=== PATIENT | male | born 1990 | race Caucasian/White ===

== ENCOUNTER 2018-08-01 18:32 | Emergency (ER) | payer MEDICAID ==
[~2018-08-01] VITALS: Ht 188 cm; Wt 79.4 kg
--- NOTE | 2018-08-01 19:10 | NUR ---
ED Nurse Note:pt. came with abscess on both thighs
--- NOTE | 2018-08-01 19:13 | Emergency Room Report ---
History of Present Illness General Chief Complaint: Skin Rash/Abscess Source: Patient Present Illness HPI 27-year-old male presents to the emergency department complaining of 10 out of 10 severity pain, tenderness, swelling, erythema and warmth to the bilateral thighs secondary to spider bite x3 to 4 days. Patient reports that he was seen at [facility] and has been taking Keflex and Bactrim for the past 2 days however his symptoms have been progressing. Patient reports fevers and chills he states he is up-to-date with his vaccinations he denies taking blood thinning medications he denies necrosis of the skin. Patient denies paresthesias. Patient denies that these wounds are secondary to drug use. Pain is exacerbated upon palpation and attempts to walk. Patient states that he is to the point where he cannot walk because it so painful. Denies history of immune compromise. No aggravating or relieving factors at this time. Allergies: Coded Allergies: No Known Allergies (Unverified , 08/01/18) Patient History Past Medical History: see triage record Past Surgical History: none Pertinent Family History: none Immunizations: UTD Reviewed Nursing Documentation: PMH: Agreed; PSxH: Agreed Nursing Documentation-PMH Past Medical History: No Stated History Review of Systems All Other Systems: negative except mentioned in HPI Physical Exam Vital Signs Date Time Temp Pulse Resp B/P (MAP) Pulse Ox O2 Delivery O2 Flow Rate FiO2 08/01/18 18:34 98.2 118 18 146/79 (101) 96 Room Air Sp02 EP Interpretation: reviewed, normal General Appearance: no apparent distress, alert, GCS 15, non-toxic Head: normocephalic, atraumatic Eyes: bilateral eye normal inspection, bilateral eye PERRL ENT: hearing grossly normal, normal voice Neck: full range of motion Respiratory: lungs clear, normal breath sounds, speaking full sentences Cardiovascular #1: regular rate, rhythm, normal capillary refill Gastrointestinal: non tender Musculoskeletal: back normal, gait/station normal - compensatory, normal range of motion, tender - TTP to bilateral anterior thighs Neurologic: alert, oriented x3, responsive, motor strength/tone normal, sensory intact, speech normal, grossly normal Psychiatric: judgement/insight normal Skin: no rash, warm/dry, well hydrated, other - bilateral anterior thigh abscess and cellulitis:Area of erythema is approximately 6.5-7 inches in diameter. there is induration, warmth, and moderate tenderness. No obvious skin necrosis. Medical Decision Making PA Attestation Dr. Crockett is my supervising Physician whom patient management has been discussed with. Diagnostic Impression: Primary Impression: Abscess of left thigh Additional Impressions: Abscess of right thigh Cellulitis of left thigh Cellulitis of right thigh ER Course 27-year-old male presents to the emergency department complaining of 10 out of 10 severity pain, tenderness, swelling, erythema and warmth to the bilateral thighs secondary to spider bite x3 to 4 days. Patient reports that he was seen at [facility] and has been taking Keflex and Bactrim for the past 2 days however his symptoms have been progressing. Patient reports fevers and chills he states he is up-to-date with his vaccinations he denies taking blood thinning medications he denies necrosis of the skin. Patient denies paresthesias. Patient denies that these wounds are secondary to drug use. Pain is exacerbated upon palpation and attempts to walk. Patient states that he is to the point where he cannot walk because it so painful. Denies history of immune compromise. No aggravating or relieving factors at this time. Ddx considered but are not limited to cellulitis, abscess, cystic acne, necrotizing fasciitis, insect bite. Vital signs: Pt. is tachycardic otherwise are WNL, pt. is afebrile H&PE are most consistent with bilateral anterior thigh abscess and cellulitis failing oral abx treatment. area of erythema is approximately 6.5-7 inches in diameter. there is induration, warmth, and moderate tenderness. No obvious skin necrosis. highly suspicious for IM drug use, pt. possibly having w/d symptoms as well... current afebrile yet visible diaphoresis and anxiousness. ORDERS: -CBC: WBC's 12.8 -CMP: WNL -Lactic Acid: WNL -UA : WNL *please note CT scanner is non-functional at this time* ED INTERVENTIONS: -IV Vancomycin 1.5g - 1 liter NS Surgical Consult: Dr. Rodriguez - recommends admission for surgical drainage and IV abx. DISPOSITION: at this time pt. will be admitted to [facility] Dr. Montiel for Bilateral Thigh Abscess and Cellulitis. Dr. Montiel agreed to admit the pt. and to continue pt. care management. Labs Test 08/01/18 19:30 6/10/19 19:57 White Blood Count 12.8 K/UL (4.8-10.8) Red Blood Count 5.60 M/UL (4.70-6.10) Hemoglobin 16.6 G/DL (14.2-18.0) Hematocrit 48.6 % (42.0-52.0) Mean Corpuscular Volume 87 FL (80-99) Mean Corpuscular Hemoglobin 29.6 PG (27.0-31.0) Mean Corpuscular Hemoglobin Concent 34.1 G/DL (32.0-36.0) Red Cell Distribution Width 12.1 % (11.6-14.8) Platelet Count 236 K/UL (150-450) Mean Platelet Volume 8.4 FL (6.5-10.1) Neutrophils (%) (Auto) 68.3 % (45.0-75.0) Lymphocytes (%) (Auto) 19.1 % (20.0-45.0) Monocytes (%) (Auto) 10.6 % (1.0-10.0) Eosinophils (%) (Auto) 0.8 % (0.0-3.0) Basophils (%) (Auto) 1.1 % (0.0-2.0) Sodium Level 134 MMOL/L (136-145) Potassium Level 4.3 MMOL/L (3.5-5.1) Chloride Level 99 MMOL/L (98-107) Carbon Dioxide Level 28 MMOL/L (21-32) Anion Gap 7 mmol/L (5-15) Blood Urea Nitrogen 16 mg/dL (7-18) Creatinine 1.1 MG/DL (0.55-1.30) Estimat Glomerular Filtration Rate > 60 mL/min (>60) Glucose Level 126 MG/DL (74-106) Lactic Acid Level 1.10 mmol/L (0.4-2.0) Calcium Level 8.9 MG/DL (8.5-10.1) Total Bilirubin 0.4 MG/DL (0.2-1.0) Aspartate Amino Transf (AST/SGOT) 20 U/L (15-37) Alanine Aminotransferase (ALT/SGPT) 23 U/L (12-78) Alkaline Phosphatase 91 U/L (46-116) Total Creatine Kinase 49 U/L (26-308) Troponin I 0.000 ng/mL (0.000-0.056) Total Protein 8.6 G/DL (6.4-8.2) Albumin 3.6 G/DL (3.4-5.0) Globulin 5.0 g/dL Albumin/Globulin Ratio 0.7 (1.0-2.7) Urine Color Yellow Urine Appearance Clear Urine pH 6.5 (4.5-8.0) Urine Specific [place] 1.020 (1.005-1.035) Urine Protein 2+ (NEGATIVE) Urine Glucose (UA) Negative (NEGATIVE) Urine Ketones Negative (NEGATIVE) Urine Blood Negative (NEGATIVE) Urine Nitrite Negative (NEGATIVE) Urine Bilirubin Negative (NEGATIVE) Urine Urobilinogen 8 MG/DL (0.0-1.0) Urine Leukocyte Esterase 1+ (NEGATIVE) Urine RBC 0-2 /HPF (0 - 0) Urine WBC 2-4 /HPF (0 - 0) Urine Squamous Epithelial Cells Occasional /LPF Urine Bacteria Occasional /HPF (NONE) Last Vital Signs Date Time Temp Pulse Resp B/P (MAP) Pulse Ox O2 Delivery O2 Flow Rate FiO2 08/01/18 18:34 98.2 118 18 146/79 (101) 96 Room Air Disposition: ADMITTED INPATIENT Condition: Serious Physician Consult: Dr. Rodriguez ( Surgery) Scripts No Active Prescriptions or Reported Meds Julienne Strong Aug 01, 2018 19:13
--- NOTE | 2018-08-01 19:20 | NUR ---
ED Nurse Note: Mayra desir from [facility]. Patient walked in to ER due to abscess on both thighs. Per patient he thoght it is spider bite, and he started mess with it. AAO x4, VSS at this time, patient apear with swolen, dark red thighs.
[2018-08-01] MEDS ORDERED: Vancomycin 1.5 GM in NS 275 ML IVPB ONE (19:30)
[2018-08-01 19:35] LABS: BASOPHILS % (AUTO) 1.1 % (0.0-2.0); EOSINOPHILS % (AUTO) 0.8 % (0.0-3.0); HEMATOCRIT 48.6 % (42.0-52.0); HEMOGLOBIN 16.6 G/DL (14.2-18.0); LYMPHOCYTES % (AUTO) 19.1 % (20.0-45.0); MEAN CORPUSCULAR VOLUME 87 FL (80-99); MONOCYTES % (AUTO) 10.6 % (1.0-10.0); NEUTROPHILS % (AUTO) 68.3 % (45.0-75.0); PLATELET COUNT 236 K/UL (150-450); RED CELL DISTRIBUTION WIDTH 12.1 % (11.6-14.8); WHITE BLOOD COUNT 12.8 K/UL (4.8-10.8)
[2018-08-01 19:41] VITALS: BP 146/79
[2018-08-01 19:50] LABS: ANION GAP 7 mmol/L (5-15); BLOOD UREA NITROGEN 16 mg/dL (7-18); CALCIUM 8.9 MG/DL (8.5-10.1); CARBON DIOXIDE 28 MMOL/L (21-32); CHLORIDE 99 MMOL/L (98-107); CREATININE 1.1 MG/DL (0.55-1.30); POTASSIUM 4.3 MMOL/L (3.5-5.1); SODIUM 134 MMOL/L (136-145)
[2018-08-01 19:55] LABS: ALANINE AMINOTRANSFERASE 23 U/L (12-78); ALBUMIN 3.6 G/DL (3.4-5.0); ALBUMIN/GLOBULIN RATIO 0.7 (1.0-2.7); ALKALINE PHOSPHATASE 91 U/L (46-116); ASPARTATE AMINO TRANSFERASE 20 U/L (15-37); BILIRUBIN,TOTAL 0.4 MG/DL (0.2-1.0); CREATINE KINASE 49 U/L (26-308)
[2018-08-01 20:25] LABS: APPEARANCE,URINE CLEAR; BILIRUBIN, URINE NEGATIVE (NEGATIVE); GLUCOSE, URINE (UA) NEGATIVE (NEGATIVE); KETONES,URINE NEGATIVE (NEGATIVE); LEUKOCYTE ESTERASE ,URINE 1+ (NEGATIVE); NITRITE,URINE NEGATIVE (NEGATIVE); PH,URINE 6.5 (4.5-8.0); PROTEIN,URINE 2+ (NEGATIVE); UROBILINOGEN,URINE 8 MG/DL (0.0-1.0)
[2018-08-01 20:27] LABS: COLOR,URINE YELLOW
[2018-08-01 22:35] VITALS: BP 146/79
--- NOTE | 2018-08-01 23:11 | Consultation ---
History of Present Illness General Date patient seen: Aug 01, 2018 Reason for Hospitalization: Skin Rash/Abscess Present Illness HPI 27 year old male presented to ED with complaints of worsening bilateral lower extremity / thigh wounds. States he believes they were spider bites but is unsure. First noted as small lump 4 + days ago and worsening since. has 8/10 tenderness from wounds. right thigh began to spontaneously drain 2 days ago. no n/v/f/c. patient ensures that they are not from drug use or skin popping. states had similar event but when he was a child. leukocytosis of 12k. surgery called to evaluate and assist with care. patient seen in ED, patient examined, chart reviewed. Allergies: Coded Allergies: No Known Allergies (Unverified , 08/01/18) Medication History No Active Prescriptions or Reported Meds Patient History History Provided By: Patient, Medical Record, PMD Healthcare decision maker Resuscitation status Advanced Directive on File Past Medical/Surgical History Past Medical/Surgical History: (1) Cellulitis of right thigh (2) Abscess of right thigh (3) Cellulitis of left thigh (4) Abscess of left thigh Review of Systems Review of Symptoms General ROS: no weight loss or fever Psychological ROS: no depression or mood changes, no memory loss Ophthalmic ROS: no visual changes or eye irritation ENT ROS: no nasal congestion, hearing loss, dizziness Allergy and Immunology ROS: no allergic symptoms or urticaria Hematological and Lymphatic ROS: no swollen glands, unusual bleeding or bruising Endocrine ROS: no polyuria, polydipsia, weight changes, temperature intolerance Respiratory ROS: no cough, shortness of breath, or wheezing Cardiovascular ROS: no chest pain or dyspnea on exertion Gastrointestinal ROS: denies abdominal pain, no bright red blood in stool. Musculoskeletal ROS: no myalgias or arthralgias Neurological ROS: no TIA or stroke symptoms Dermatological ROS: no new or changing skin lesions, rashes or pruritis Physical Exam Physical Exam General appearance: alert, cooperative, no distress, appears stated age Head: Normocephalic, without obvious abnormality, atraumatic Eyes: conjunctivae/corneas clear. PERRL, EOM's intact. Fundi benign Throat: Lips, mucosa, and tongue normal. Teeth and gums normal Neck: supple, symmetrical, trachea midline, no adenopathy, thyroid: not enlarged, symmetric, no tenderness/mass/nodules, no carotid bruit and no JVD Lungs: clear to auscultation bilaterally Heart: regular rate and rhythm, S1, S2 normal, no murmur, click, rub or gallop Abdomen: soft, non-tender. Bowel sounds normal. No masses, no organomegaly Extremities: Right anterior mid thigh there is a large 20cm x 10cm area of cellulitis with 2cm skin opening at apex draining serous fluid. no fluctuance. tender. Left lateral mid thigh there is a 10cm x 7cm area of cellulitis with mild fluctuance, tender. Pulses: 2+ and symmetric Skin: Skin color, texture, turgor normal. No rashes or lesions Neurologic: Grossly normal Last 24 Hour Vital Signs Date Time Temp Pulse Resp B/P (MAP) Pulse Ox O2 Delivery O2 Flow Rate FiO2 08/01/18 19:41 98.2 18 146/79 96 Room Air 08/01/18 18:34 98.2 118 18 146/79 (101) 96 Room Air Laboratory Tests Test 08/01/18 19:30 08/01/18 19:57 White Blood Count 12.8 K/UL (4.8-10.8) H Red Blood Count 5.60 M/UL (4.70-6.10) Hemoglobin 16.6 G/DL (14.2-18.0) Hematocrit 48.6 % (42.0-52.0) Mean Corpuscular Volume 87 FL (80-99) Mean Corpuscular Hemoglobin 29.6 PG (27.0-31.0) Mean Corpuscular Hemoglobin Concent 34.1 G/DL (32.0-36.0) Red Cell Distribution Width 12.1 % (11.6-14.8) Platelet Count 236 K/UL (150-450) Mean Platelet Volume 8.4 FL (6.5-10.1) Neutrophils (%) (Auto) 68.3 % (45.0-75.0) Lymphocytes (%) (Auto) 19.1 % (20.0-45.0) L Monocytes (%) (Auto) 10.6 % (1.0-10.0) H Eosinophils (%) (Auto) 0.8 % (0.0-3.0) Basophils (%) (Auto) 1.1 % (0.0-2.0) Sodium Level 134 MMOL/L (136-145) L Potassium Level 4.3 MMOL/L (3.5-5.1) Chloride Level 99 MMOL/L (98-107) Carbon Dioxide Level 28 MMOL/L (21-32) Anion Gap 7 mmol/L (5-15) Blood Urea Nitrogen 16 mg/dL (7-18) Creatinine 1.1 MG/DL (0.55-1.30) Estimat Glomerular Filtration Rate > 60 mL/min (>60) Glucose Level 126 MG/DL (74-106) H Lactic Acid Level 1.10 mmol/L (0.4-2.0) Calcium Level 8.9 MG/DL (8.5-10.1) Total Bilirubin 0.4 MG/DL (0.2-1.0) Aspartate Amino Transf (AST/SGOT) 20 U/L (15-37) Alanine Aminotransferase (ALT/SGPT) 23 U/L (12-78) Alkaline Phosphatase 91 U/L (46-116) Total Creatine Kinase 49 U/L (26-308) Troponin I 0.000 ng/mL (0.000-0.056) Total Protein 8.6 G/DL (6.4-8.2) H Albumin 3.6 G/DL (3.4-5.0) Globulin 5.0 g/dL Albumin/Globulin Ratio 0.7 (1.0-2.7) L Urine Color Yellow Urine Appearance Clear Urine pH 6.5 (4.5-8.0) Urine Specific [place] 1.020 (1.005-1.035) Urine Protein 2+ (NEGATIVE) H Urine Glucose (UA) Negative (NEGATIVE) Urine Ketones Negative (NEGATIVE) Urine Blood Negative (NEGATIVE) Urine Nitrite Negative (NEGATIVE) Urine Bilirubin Negative (NEGATIVE) Urine Urobilinogen 8 MG/DL (0.0-1.0) H Urine Leukocyte Esterase 1+ (NEGATIVE) H Urine RBC 0-2 /HPF (0 - 0) H Urine WBC 2-4 /HPF (0 - 0) Urine Squamous Epithelial Cells Occasional /LPF Urine Bacteria Occasional /HPF (NONE) Height (Feet): 6 Height (Inches): 2.00 Weight (Pounds): 175 Assessment/Plan Problem List: (1) Cellulitis of right thigh ICD Codes: L03.115 - Cellulitis of right lower limb SNOMED: 02221862952512390 (2) Abscess of right thigh ICD Codes: L02.415 - Cutaneous abscess of right lower limb SNOMED: 77796246520114074 (3) Cellulitis of left thigh ICD Codes: L03.116 - Cellulitis of left lower limb SNOMED: 72794896172373597 (4) Abscess of left thigh ICD Codes: L02.416 - Cutaneous abscess of left lower limb SNOMED: 05595690855354778 Assessment/Plan: Right anterior mid thigh there is a large 20cm x 10cm area of cellulitis with 2cm skin opening at apex draining serous fluid. no fluctuance. tender. Left lateral mid thigh there is a 10cm x 7cm area of cellulitis with mild fluctuance , tender. Given exam and patients inability to tolerate exam or any bedside procedure recommend admission for OR I&D if necessary. for now needs IV ABx as failed oral abx therapy given when visited [facility] okay to transfer to contracted facility as patient is stable otherwise plan for Ultrasound in AM, repeat labs, and possible OR I&D thank you Grayson Rodriguez Aug 01, 2018 23:11
--- NOTE | 2018-08-01 23:57 | NUR ---
ED Nurse Note: Gave report to AMAURY Rangel at [facility], waiting for transporetation. Patient is in the bed sleeoping, VSS at this time, no acute disstress noticed.
[2018-08-02 00:35] VITALS: BP 138/76
--- NOTE | 2018-08-02 00:35 | NUR ---
ED Nurse Note: Patient was transfered to [facility] due to abcses of his both thighs. AAO x4, VSS at this time. Patient was transfered via [id number] by S protocol with all belongings.
== END 2018-08-02 00:35 | disposition other institution (70) ==
LOC: EMR 19:20
DX: L02.416 Cutaneous abscess of left lower limb (principal); L02.415 Cutaneous abscess of right lower limb; L03.116 Cellulitis of left lower limb; L03.115 Cellulitis of right lower limb
CPT/HCPCS: 36415; 80053; 81003; 82550; 83605; 84484; 85025; 87040; 96365; 96366; 99285; J3370; J7050